=== PATIENT | male | born 1955 | race African-American/Black ===

== ENCOUNTER 2018-12-30 02:16 | Emergency (ER) | payer MEDICAID ==
[~2018-12-30] VITALS: Ht 170.2 cm; Wt 68.0 kg
[2018-12-30] MEDS ORDERED: HYDROCODONE/ACETAMINOPHEN 5/325MG TABLET PO ONE (03:30)
[2018-12-30] MEDS ORDERED: TETRACAINE 0.5% OPHTH DROPS 4ML RIGHTEYE ONE (03:30)
[2018-12-30] MEDS ORDERED: FLUORESCEIN SODIUM 1MG/STRIP RIGHTEYE ONE (03:30)
[2018-12-30] MEDS ORDERED: CLONIDINE 0.2MG TABLET PO ONE (03:30)
[2018-12-30 06:00] VITALS: BP 165/91
== END 2018-12-30 06:12 | disposition home or self-care (01) ==
LOC: ER 02:16
DX: H10.021 Other mucopurulent conjunctivitis, right eye (principal); I80.9 Phlebitis and thrombophlebitis of unspecified site; I10 Essential (primary) hypertension; M54.30 Sciatica, unspecified side
CPT/HCPCS: 99284